=== PATIENT | male | born 2000 ===

== ENCOUNTER 2022-09-04 18:52 | Emergency (ER) | payer OTHER ==
[~2022-09-04] VITALS: Ht 175.3 cm; Wt 84.1 kg
[2022-09-04 18:53] VITALS: BP 150/66
== END 2022-09-04 20:26 | disposition left against medical advice (07) ==
LOC: M ED 18:52
DX: Z53.21 Procedure and treatment not carried out due to patient leaving prior to being seen by health care provider (principal)